=== PATIENT | female | born 1955 | race Caucasian/White ===

== ENCOUNTER 2017-12-30 18:20 | Inpatient (IN) ==
[2017-12-31] MEDS ORDERED: Chlorhexidine Gluconate 2% 1 Pack (2 Cloths) TOPICAL ONE (00:10)
[2017-12-31] MEDS ORDERED: Metoprolol Tartrate 25 MG Tablet PO ONE (00:10)
[2017-12-31] MEDS ORDERED: Acetaminophen 325 MG Tablet PO PRN (00:20)
[2017-12-31] MEDS ORDERED: Bisacodyl 10 MG Supp RECTAL PRN (00:20)
[2017-12-31] MEDS ORDERED: Potassium Chlor 20 mEq Premix 20 MEQ/100 ML PIGGYBACK IV.SIG ONE ×2 (00:22→03:03)
[2017-12-31] MEDS ORDERED: Dextrose 50% in Water 50 ML Vial IV.PUSH PRN (00:33)
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
[2017-12-31] MEDS ORDERED: Sodium Chlor 0.9% Inj 500 ML IV.SIG SCH (01:00)
[2017-12-31] MEDS: Morphine Sulfate Inj 2 MG/ML Vial IV.PUSH PRN ×2 (01:57→08:55)
[2017-12-31 07:47] LABS: INR 1.1 Ratio; Prothrombin Time 10.8 sec (9.8-11.6)
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
[2017-12-31] MEDS: Insulin NovoLOG Aspart Correctional Sugar Inj SQ SCH ×4 (08:49→21:12)
[2017-12-31] MEDS: Senna/Docusate Sodium 8.6/50 MG Tablet PO SCH ×2 (10:22→20:21)
[2017-12-31] MEDS ORDERED: Glycopyrrolate Inj 1 MG/5 ML Syringe IV.PUSH ONE (10:52)
[2017-12-31] MEDS ORDERED: Neostigmine Inj 5 MG/5 ML Syringe IV.PUSH ONE (10:52)
[2017-12-31] MEDS ORDERED: Phenylephrine/NS 1000 MCG/10ML Syringe IV.PUSH ONE (10:52)
[2017-12-31] MEDS ORDERED: Lidocaine PF 1% Inj 5 ML Syringe INFILTRATN ONE (10:52)
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
[2017-12-31] MEDS ORDERED: Post-op Orders (for Pharmacy) OTHER STA (11:49)
[2017-12-31] MEDS ORDERED: fentaNYL Citrate Inj 100 MCG/2 ML Ampul ONE (12:00)
[2017-12-31] MEDS ORDERED: *Labetalol HCl Inj 100 MG/20 ML Vial PERIprocedural Use ONLY IV.PUSH ONE (12:05)
--- NOTE | 2017-12-31 13:01 | XR ---
EXAM DATE: 12/31/2017 12:53 PM EDT AGE/SEX: 62 years / Female INDICATIONS: Open reduction internal fixation of right knee. CLINICAL DATA: This is the patient's subsequent encounter. Patient reports that signs and symptoms h ave been present for 2 days and indicates a pain score of Nonresponsive. MEDICAL/SURGICAL HISTORY: . Hiatal hernia. Hypertension. Gastroesophageal reflux disease. Diabe brady. . section. COMPARISON: No prior exams available for comparison. FINDINGS: 2 spot intraoperative fluoroscopic views of the knee demonstrate 2 screws traversing the medial and l ateral tibial plateau. CONCLUSION: Postoperative changes. Electronically signed by: Rick Page MD 12/31/2017 1:00 PM EDT
[2017-12-31 15:22] LABS: Anion Gap 12 meq/L (5-15); Blood Urea Nitrogen 7 mg/dL (7-18); Calcium 8.1 mg/dL (8.5-10.1); Chloride 102 meq/L (98-107); Glomerular Filtration Rate Greater Than 89 mL/min (>89); Glucose,Random 248 mg/dL (74-106); Magnesium 1.3 mg/dL (1.5-2.5); Sodium 138 meq/L (136-145)
--- NOTE | 2017-12-31 16:44 | ECG ---
Date Performed: 12/31/2017 Time Performed: 05:15:54 PTAGE: 62 years EKG: Sinus rhythm . Anterolateral T wave changes are nonspecific Borderline ECG NO PREVIOUS TRACING DOCTOR: Dinh Trevizo Interpretating Date/Time 12/31/2017 16:44:09
[2017-12-31] MEDS: Magnesium Oxide 400 MG Tablet PO ONE ×2 (17:21→17:51)
[2017-12-31] MEDS: ceFAZolin Inj 2,000 MG in Sodium Chlor 0.9% Inj 80 ML IV.SIG SCH (17:53)
[2018-01-01] MEDS: ceFAZolin Inj 2,000 MG in Sodium Chlor 0.9% Inj 80 ML IV.SIG SCH ×2 (01:09→10:04)
[2018-01-01] MEDS: Morphine Sulfate Inj 2 MG/ML Vial IV.PUSH PRN (02:25)
[2018-01-01 06:03] LABS: Magnesium 1.3 mg/dL (1.5-2.5); Potassium 3.1 meq/L (3.5-5.1)
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
[2018-01-01] MEDS ORDERED: Potassium Chloride 25 MEQ Effervescent Tablet PO ONE ×2 (07:26→17:00)
[2018-01-01] MEDS: Senna/Docusate Sodium 8.6/50 MG Tablet PO SCH ×2 (08:26→20:54)
[2018-01-01] MEDS: Insulin NovoLOG Aspart Correctional Sugar Inj SQ SCH ×4 (08:36→20:56)
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
[2018-01-02 05:23] LABS: Anion Gap 13 meq/L (5-15); Blood Urea Nitrogen 10 mg/dL (7-18); Calcium 8.7 mg/dL (8.5-10.1); Carbon Dioxide 23.3 meq/L (21.0-32.0); Chloride 107 meq/L (98-107); Glomerular Filtration Rate Greater Than 89 mL/min (>89); Glucose,Random 199 mg/dL (74-106); Sodium 143 meq/L (136-145)
--- NOTE | 2018-01-02 08:57 | P.PNOP ---
Subjective Interval history: Postoperative day #2 ORIF right lateral tibial plateau fracture. The patient is awake, alert and eating breakfast. She states her pain is well controlled. She has no other specific complaint. Physical Exam Vital signs: Vital Signs 01/01/18 12:00 01/01/18 16:00 01/01/18 20:00 Temperature 98.4 F 98.9 F 99.6 F Pulse Rate 102 H 105 H 99 H Respiratory Rate 16 14 20 Blood Pressure 163/77 H 158/75 H 127/73 Pulse Oximetry 98 97 97 01/02/18 00:00 01/02/18 04:00 01/02/18 08:00 Temperature 98.7 F 97.9 F 98.2 F Pulse Rate 86 94 H 93 H Respiratory Rate 16 20 18 Blood Pressure 161/77 H 166/79 H 152/73 H Pulse Oximetry 97 96 93 L Intake & Output 01/01/18 01/02/18 01/02/18 18:59 06:59 18:59 Intake Total 2982 / 2982 480 / 480 Output Total 410 / 410 Balance 2572 / 2572 480 / 480 Intake: IV 2100 / 2100 LR 1000 mL Inj 1,000 ML @ 100 2000 / 2000 mls/hr IV.CONT .Q10H [facility] Rx#: [id number] Ancef Inj 2,000 MG In NS Inj 80 100 / 100 ML @ 200 mls/hr IV.SIG Q8H [facility] Rx#:[id number] Oral 300 / 300 480 / 480 Other 582 / 582 Output: Urine 410 / 410 Other: Other Intake Source Saline Solution # Voids 3 Date of Last Bowel Movement 12/30/17 Narrative: The right lower extremity dressing is dry and intact. The right upper extremity is in a sling. She moves her toes and ankle freely. She denies calf discomfort and has a negative Homans sign. - Constitutional no acute distress Results - Labs CBC & Chem 7: 01/02/18 04:41 Laboratory Results - last 24 hr 01/01/18 01/01/18 01/01/18 12:34 17:15 20:42 Sodium Potassium Chloride Carbon Dioxide Anion Gap BUN Creatinine Estimated GFR POC Glucose 184 H 256 H 253 H Random Glucose Calcium 01/02/18 01/02/18 04:41 08:14 Sodium 143 Potassium 3.0 L Chloride 107 Carbon Dioxide 23.3 Anion Gap 13 BUN 10 Creatinine 0.47 L Estimated GFR Greater than 89 POC Glucose 214 H Random Glucose 199 H Calcium 8.7 - Procedures ORIF right lateral tibial plateau fracture, Right knee aspiration 12/31/17, Karen Assessment and Plan - Problem List (1) Tibial plateau fracture, right Code(s): S82.141A - Displaced bicondylar fracture of right tibia, initial encounter for closed fracture Status: Acute (2) Hemarthrosis of knee, right Code(s): M25.061 - Hemarthrosis, right knee Status: Acute - Assessment and Plan POD #2 ORIF right lateral tibial plateau fracture, Right knee aspiration Ortho status stable Progress rehab, nonweightbearing right lower extremity and right upper extremity Start daily dressing changes today Ice as needed Aspirin for DVT prophylaxis Case management to arrange [facility] Orthopedic status stable for discharge. Follow-up 7-10 days.
[2018-01-02] MEDS: Senna/Docusate Sodium 8.6/50 MG Tablet PO SCH ×2 (09:27→20:55)
[2018-01-02] MEDS: Potassium Chloride 25 MEQ Effervescent Tablet PO SCH ×2 (09:27→20:57)
[2018-01-02] MEDS: Insulin NovoLOG Aspart Correctional Sugar Inj SQ SCH ×4 (09:30→22:03)
[2018-01-02] MEDS: Mag Sulf 1 gm/100 ml Premix 100 ML IV.SIG SCH ×2 (09:30→11:29)
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
[2018-01-02 16:16] VITALS: RESP 16
[2018-01-02] MEDS: Metoprolol Tartrate 25 MG Tablet PO SCH (20:56)
[2018-01-03 02:09] VITALS: O2SAT 98
[2018-01-03 07:35] LABS: Anion Gap 10 meq/L (5-15); Blood Urea Nitrogen 16 mg/dL (7-18); Calcium 8.8 mg/dL (8.5-10.1); Carbon Dioxide 24.8 meq/L (21.0-32.0); Chloride 108 meq/L (98-107); Glomerular Filtration Rate Greater Than 89 mL/min (>89); Glucose,Random 204 mg/dL (74-106); Magnesium 1.6 mg/dL (1.5-2.5); Potassium 3.2 meq/L (3.5-5.1); Sodium 143 meq/L (136-145)
[2018-01-03] MEDS: Senna/Docusate Sodium 8.6/50 MG Tablet PO SCH (08:45)
[2018-01-03] MEDS: Insulin NovoLOG Aspart Correctional Sugar Inj SQ SCH ×2 (08:46→12:33)
[2018-01-03] MEDS: Potassium Chloride 25 MEQ Effervescent Tablet PO SCH (08:46)
[2018-01-03] MEDS: Metoprolol Tartrate 25 MG Tablet PO SCH (08:47)
[2018-01-03 10:24] VITALS: BP 114/67; PULSE 99; TEMP 97.2
--- NOTE | 2018-01-03 10:47 | P.PNOP ---
Subjective Interval history: Patient working with PT. She states her pain is well controlled. She states she feels ready for discharge home to her friend's house. Physical Exam Vital signs: Vital Signs 01/02/18 12:00 01/02/18 16:00 01/02/18 20:00 Temperature 98.1 F 98.6 F 98.4 F Pulse Rate 97 H 99 H 104 H Respiratory Rate 16 16 16 Blood Pressure 154/71 H 153/72 H 183/84 H Pulse Oximetry 96 97 99 01/03/18 00:00 01/03/18 08:00 Temperature 97.9 F 97.2 F L Pulse Rate 81 99 H Respiratory Rate 16 Blood Pressure 145/77 H 114/67 Pulse Oximetry 98 98 Intake & Output 01/02/18 01/03/18 01/03/18 18:59 06:59 18:59 Intake Total 1680 / 1680 Balance 1680 / 1680 Intake: IV 1200 / 1200 Magnesium Sulfate 1 gm/D5W 100 200 / 200 ml Premix 100 ML @ 100 mls/hr IV.SIG Q1H [facility] Rx#:[id number] Oral 480 / 480 Other: # Voids 2 2 Date of Last Bowel Movement 12/30/17 # Bowel Movements 1 Narrative: GENERAL: Well-nourished, well-developed adult female in no obvious distress. SKIN: Warm and dry. HEAD: Atraumatic. Normocephalic. CARDIOVASCULAR: Regular rate and rhythm. RESPIRATORY: No accessory muscle use. Clear to auscultation. Breath sounds equal bilaterally. GASTROINTESTINAL: Abdomen soft, non-tender, distended. Positive bowel sounds. MUSCULOSKELETAL: RLE: Dressing dry and intact. Brace in place. Tender to palpation with mild swelling around incision site. Freely able to move distal digits. No calf pain. Negative Mary Alice's sign. Good cap refill. 2+ pedal pulses. Neurovascular intact. RUE: sling in place, tender over mid clavicle, NVI NEUROLOGICAL: Awake and alert. No obvious cranial nerve deficits. Motor grossly within normal limits. Normal speech. PSYCHIATRIC: Appropriate mood and affect; insight and judgment good. Results - Labs CBC & Chem 7: 01/03/18 05:42 Laboratory Results - last 24 hr 01/02/18 01/02/18 01/02/18 11:28 17:04 21:04 Sodium Potassium Chloride Carbon Dioxide Anion Gap BUN Creatinine Estimated GFR POC Glucose 264 H 180 H 252 H Random Glucose Calcium Magnesium 01/03/18 01/03/18 05:42 07:55 Sodium 143 Potassium 3.2 L Chloride 108 H Carbon Dioxide 24.8 Anion Gap 10 BUN 16 Creatinine 0.52 Estimated GFR Greater than 89 POC Glucose 190 H Random Glucose 204 H Calcium 8.8 Magnesium 1.6 - Procedures ORIF right lateral tibial plateau fracture, Right knee aspiration 12/31/17, Karen Assessment and Plan - Problem List (1) Tibial plateau fracture, right Code(s): S82.141A - Displaced bicondylar fracture of right tibia, initial encounter for closed fracture Status: Acute (2) Hemarthrosis of knee, right Code(s): M25.061 - Hemarthrosis, right knee Status: Acute - Assessment and Plan POD #3 ORIF right lateral tibial plateau fracture, Right knee aspiration Ortho status stable Progress rehab, nonweightbearing right lower extremity and right upper extremity No range of motion of RLE daily dressing changes today Ice as needed Aspirin for DVT prophylaxis Cleared for discharge from orthopedic standpoint. RN to educate patient in daily wound care as [facility] will not be approved. I think this is reasonable and patient states she feels comfortable doing this Follow-up 7-10 days.
[2018-01-03] MEDS ORDERED: Mag Sulf 1 gm/100 ml Premix 100 ML IV.SIG ONE (12:00)
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
== END 2018-01-03 14:35 | disposition home or self-care (01) ==
LOC: NEDDLT 18:20 → N06 23:52
PROVIDERS: ADMIT Family Medicine; ATTEND Family Medicine